=== PATIENT | female | born 1965 | race African-American/Black ===

== ENCOUNTER 2017-06-13 15:10 | Emergency (ER) | payer OTHER ==
[~2017-06-13] VITALS: Ht 177.8 cm; Wt 99.8 kg
--- NOTE | ~2017-06-13 | EKG ---
[place] [address] [facility] [place] [address] ELECTROCARDIOGRAM REPORT Name: BENITA VARGAS SHRADDHA [id number] Admission: 06/13/17 Attend Phys: Discharge: 06/13/17 Date of : 65 Report #: [id number] THIS REPORT FOR: //name// [facility] ED Test Date: 2017-06-13 Test Time: 17:26:13 Pat Name: BENITA VARGAS Department: Room: Gender: Female Certified Hearing Instrument Dispenser: CARLOS : 1965 Requested By: Estefania Rodríguez Order Number: [id number] MD: Matias Vasquez Measurements Intervals [place] Rate: 82 P: 19 VT: 165 QRS: -14 QRSD: 65 T: 60 QT: 513 QTc: 600 Interpretive Statements Sinus rhythm Poor R wave progression Inferior infarct, age indeterminate Prolonged QT interval Compared to ECG 05/04/2007 09:38:38 No significant change was found Electronically Signed On 06-14-2017 9:07:18 CDT by Matias Vasquez [email or web address] <ELECTRONICALLY SIGNED> By: Matias Vasquez MD, [facility] 06/14/17 0907 1726 25 Matias Vasquez MD, [facility] /EPI
--- NOTE | ~2017-06-13 | EKG ---
[place] [address] [facility] [place] [address] ELECTROCARDIOGRAM REPORT Name: BENITA VARGAS SHRADDHA [facility] [id number] Admission: 06/13/17 Attend Phys: Discharge: 06/13/17 Date of : 65 Report #: [id number] THIS REPORT FOR: //name// [facility] ED Test Date: 2017-06-13 Test Time: 15:29:57 Pat Name: BENITA VARGAS Department: Room: Gender: Female [employer] Equipment Field Service Technician: CARRINGTON : 1965 Requested By: Estefania Rodríguez Order Number: [id number] MD: Matias Vasquez Measurements Intervals [place] Rate: 100 P: 32 [place]: 172 QRS: -14 QRSD: 83 T: 47 QT: 393 QTc: 507 Interpretive Statements Sinus tachycardia Anterior infarct, old Prolonged QT interval Compared to ECG 05/04/2007 09:38:38 Myocardial infarct finding now present Prolonged QT interval now present Electronically Signed On 06-14-2017 9:05:05 CDT by Matias Vasquez [email or web address] <ELECTRONICALLY SIGNED> By: Matias Vasquez MD, [facility] 06/14/17904 1529 1529 Matias Vasquez MD, [facility] /EPI
[~2017-06-13 15:10] MED LIST: ALLEGRA60 MG; ANXIETY MED; AUGMENTIN 875875 M1 PO; CLEOCIN HCL150 MG PO; FLONASE16 GM; MUCINEX D TABL1 EAC1 PO; NAPROSYN500 MG PO; PERCOCET 5-3251 EACH PO; ULTRAM 50MG TAB50 MG PO; VENTOLIN HFA INH8 GM IH
[2017-06-13 15:44] LABS: ABSOLUTE NEUTROPHILS 3.4 thou/uL (1.4-8.2); BASOPHILS 0.3 % (0.0-2.0); HEMATOCRIT 39.3 % (37.0-47.0); HEMOGLOBIN 13.3 gm/dL (12.0-15.0); LYMPHOCYTES 25.9 % (24.0-44.0); MCHC 33.9 g/dL (28.0-37.0); MCV 85.6 fL (80.0-100.0); MONOCYTES 10.3 % (1.0-8.0); PLATELET COUNT 262 thou/uL (150-400); POLYS 61.5 % (36.0-66.0); RBC 4.59 mil/uL (4.20-5.00); RDW 16.5 % (10.5-14.5); WBC 5.5 thou/uL (4.0-11.0)
[2017-06-13 15:48] LABS: ANION GAP 9 mmol/L (7-16); BUN 12 mg/dL (7-18); CALCIUM 9.1 mg/dL (8.5-10.1); CHLORIDE 105 mmol/L (98-107); CO2 25 mmol/L (21-32); CREATININE 0.9 mg/dL (0.6-1.0); GLUCOSE 112 mg/dL (74-106); POTASSIUM 3.7 mmol/L (3.5-5.1); SODIUM 139 mmol/L (136-145)
[2017-06-13 15:56] LABS: SGOT 42 U/L (15-37); SGPT 42 U/L (30-65); TOTAL BILIRUBIN 0.3 mg/dL (<0.1-1.0); TOTAL PROTEIN 9.2 g/dL (6.4-8.2); TROPONIN-I < 0.04 ng/mL (<0.06)
[2017-06-13 19:07] VITALS: BP 120/77
[2017-06-13] MEDS ORDERED: HYDROCODONE-AP1 EAC6 PO (19:09)
[2017-06-13] MEDS ORDERED: PREDNISONE 20 M20 M1 PO (19:09)
== END 2017-06-13 19:14 | disposition home or self-care (01) ==
LOC: ER 15:10
PROVIDERS: Physician Assistant
DX: R06.02 Shortness of breath (principal); R07.9 Chest pain, unspecified; Z90.49 Acquired absence of other specified parts of digestive tract